=== PATIENT | female | born 2000 | race Two or more races ===

== ENCOUNTER 2025-05-27 18:54 | Emergency (ER) | payer OTHER, SELFPAY ==
--- NOTE | 2025-05-27 | ECG_ITS ---
Test Reason : SYNCOPE Blood Pressure : */* mmHG Vent. Rate : 63 BPM Atrial Rate : 63 BPM P-R Int : 162 ms QRS Dur : 90 ms QT Int : 426 ms P-R-T Axes : 31 49 22 degrees QTcB Int : 435 ms Normal sinus rhythm Normal ECG No previous ECGs available Referred By: Generic ED Physician Electronically Signed By: ANEL MUSE
[2025-05-27 19:02] VITALS: BP 90/60; PULSE 70; O2SAT 98
[2025-05-27 19:07] VITALS: BP 99/67; PULSE 64; RESP 20; TEMP 36.9; O2SAT 100; BMI 29.4
--- OUTSIDE RECORDS SUMMARY | 2025-05-27 19:35 | XMS_ITS ---
Author Name [facility] Organization Unknown Care Team Organization Name Specialty Phone Email Start Date End [facility] [place] 08/23/2022 05/19/2024 [facility] ERIK EDGAR DO Primary Care 08/15/2022 05/19/2024 [facility] 09/11/2020 09/11/2020
--- OUTSIDE RECORDS SUMMARY | 2025-05-27 19:35 | XMS_ITS | Clinical Summary ---
Author Organization [facility] Address [address] [place] [phone] Phone Care Team Providers Care Journeyman Wireman Name Role Phone Physician, No Pcp Primary Care Provider Unavaila ble Allergies No known active allergies Medications No known medications Active Problems No known active problems Social History Tobacco Use Types Packs/Day Years Used Date Smoking Tobacco: Never Smokeless Tobacco: Never Tobacco Cessation:Counseling Given: Not Answered Alcohol Use Standard Drinks/Week Comments Never 0 (1 standard drink = 0.6 oz pur e alcohol) Comments Unknown Sex and Gender Information Value Date Recorded Sex Assigned at Female 11/10/2024 5:47 PM EST Legal Sex Female 3:33 PM EST Gender Identity Female 11/10/2024 5:47 PM EST Sexual Orientation Straight 11/10/2024 5: 47 PM EST Obstetrics History Last Filed Vital Signs Vital Sign Reading Time Taken Comments Blood Pressure 115/53 11/10/2024 4:35 PM EST Pulse 90 11/10/2024 4:35 PM EST Temperature 36.9 C (98.4 F) 11/10/2024 4:35 PM EST Respiratory Rate 19 11/10/2024 4:35 PM EST Oxygen Saturation 97% 11/10/2024 4:35 PM EST Inhaled Oxygen Concentration - - Weight 66.7 kg (147 lb) 11/10/2024 4:35 PM EST Height 154.9 cm (5' 1 ) 11/10/2024 4:35 PM EST Body Mass Index 27.78 11/10/2024 4:35 PM EST Plan of Treatment Health Maintenance Due Date Last Done Comments Hepatitis B Vaccines (1 of 3 - 19+ 3-dose series) 2017 Cervical Cancer Screening: P ap Smear 2019 HIV Screening 08/30/2022 Hepatitis C Screening 08/30/2022 Social Influencers of Health Screening 08/30/2022 COVID-19 Vaccine (1 - 2023-2 5 season) 2024 Depression Screening 10/01/2024 Influenza Vaccine (#1) 2025 DTaP,Tdap,and Td Vaccines (2 - Td or Tdap) 06/12/2029 06/12/2019 HIB Vaccines Aged Out No longer eligi ble based on patient's age to complete this topic HPV Vaccines Aged Out No longer eligi ble based on patient's age to complete this topic Hepatitis A Vaccines Aged Out No long er eligible based on patient's age to complete this topic IPV Vaccines Aged Out No longer eligi ble based on patient's age to complete this topic MMR Vaccines Aged Out No longer eligi ble based on patient's age to complete this topic Meningococcal ACWY Vaccine Aged Out N o longer eligible based on patient's age to complete this topic Meningococcal B Vaccine Aged Out No l onger eligible based on patient's age to complete this topic Pneumococcal Vaccine: Pediat rics (0 to 5 Years) and At-Risk Patients (6 to 49 Years) Aged Out No longer eligi ble based on patient's age to complete this topic RSV Immunization Patients Un jesús 20 months Aged Out No longer eligible b ased on patient's age to complete this topic Varicella Vaccines Aged Out No longer eligible based on patient's age to complete [place] [address] MEDICA[place] Care Teams Journeyman Wireman Relationship Specialty Start Date End Date Physician, No Pcp PCP - General 11/10/24
--- NOTE | 2025-05-27 19:39 | ED_ITS ---
[facility] - General Adult General Chief complaint: Syncope Stated complaint: syncope Time Seen by Provider: 05/27/25 19:24 Source: patient Mode of arrival: EMS Limitations: no limitations History of Present Illness ED Provider: Dr. Mccarty [facility] narrative: 25-year-old female no medical history presented hospital today for a syncopal episode. Patient had a sudden symptoms of lightheadedness and dizziness. She let herself on the ground. Patient's mother found her passing out on the ground. Patient stated that for the past couple of weeks she has been having menstrual period. However this week she has been having increased amount of menstrual bleeding. Patient has been soaking through approximately 1 pad per hour. Denies any pain denies any headache denies any shortness of breath. Related Data Previous Rx's ?Medication ?Instructions ?Recorded tranexamic acid 650 mg tablet 650 mg PO Q8H 5 days #15 tabs 05/27/25 Allergies Allergy/AdvReac Type Severity Reaction Status Date / Time No Known Allergies Allergy Verified 05/27/25 19:10 Review of Systems 2 Review of Systems: Pertinent review of systems as mentioned in [facility]. All other system otherwise negative. [facility], [facility] Past Medical History [facility], [facility] Narrative: Medical history as mentioned in [facility] Social History Social History Advance Directives: No Advance Directives Information Provided: Yes Physical Exam ED Exam Exam: General: Pleasant, no distress, interacting appropriately Head: Normacephalic, atraumatic ENT: oral mucosa moist, neck supple, no tracheal deviation Cardiovascular: regular rate, regular rhythm, no murmurs, rubbing, gallops Respiratory: CTAB, no wheeze, rales, rhonchi Neurological: Awake and alert, no facial droop noted Skin: Warm and dry Psychiatric: Appropriate mood and thoughts Vital Signs: Vital Signs - 24 hr 05/27/25 19:07 05/27/25 21:08 Temperature 98.4 F 98.6 F Pulse Rate 64 62 Respiratory Rate 20 19 Blood Pressure 99/67 100/66 Pulse Oximetry 100 100 Oxygen Delivery Method Room Air Room Air BMI result Body Mass Index 29.4 Medications Administered Discontinued Medications Generic Name Dose Route Start Last Admin Trade Name Freq PRN Reason Stop Dose Admin Tranexamic Acid 1,000 mg/ 60 mls @ 360 mls/hr 05/27/25 19:38 05/27/25 20:42 Sodium Chloride IV 05/27/25 19:47 Infused ONCE ONE Infusion Sodium Chloride 1,000 mls @ 999 mls/hr 05/27/25 19:45 05/27/25 21:36 Ns IV 05/27/25 20:45 Infused .Q1H1M MARISOL Infusion Medical Decision Making Medical Decision Making [facility] Narrative: 25-year-old female presented hospital today for a syncopal episode. In the setting of heavy menstrual bleeding this past week. We will obtain a CBC to assess her hemoglobin level. Patient's vital signs stable at this time. No sign of hypotension or tachycardia. Patient is mentating fine now. A screening EKG will be obtained. We will obtain basic lab work with troponin as well. 1 g of IV TXA will be given the patient's for her heavy menstrual bleeding. We will plan to give patient a bolus IV fluid as well. Patient's troponin is is negative hemoglobin 11.8. EKG did not show any signs of cardiac arrhythmia. HCG is negative. Troponins negative Patient states she feels better. She was ambulated with nursing staff on issues. We will plan to discharge patient with some TXA and have her follow up with her OBGYN doctor. Instruction to return to the ER if she is soaking through 2 pads per hour of vaginal bleeding. Patient agrees and understands this plan. Differential Diagnosis Differential Diagnoses: The differential diagnosis associated with the presentation includes Dehydration, anemia, hemorrhagic shock, syncopal episode, cardiac arrhythmia Lab Data MDM Lab Attestation statement: I reviewed the patient's lab results. 05/27/25 19:41 05/27/25 19:42 Labs: Lab Results 05/27/25 05/27/25 05/27/25 Range/Units 19:41 19:42 21:26 WBC 5.9 (4.8-10.8) X10*3/uL RBC 3.85 L (4.20-5.50) X10*6/uL Hgb 11.8 L (12.0-16.0) g/dl Hct 34.5 L (37.0-47.0) % MCV 89.6 (80.0-98.0) fL MCH 30.6 (27.0-33.0) pg MCHC 34.2 (31.0-35.0) g/dl RDW 12.1 (11.0-16.0) % Plt Count 221 (160-400) X10*3/uL MPV 10.9 (9.4-12.3) fL Immature Gran % (Auto) 0.2 (0.0-0.4) % Neut % (Auto) 51.7 (45-73) % Lymph % (Auto) 40.1 H (20-40) % [place] % (Auto) 6.0 (2-11) % Eos % (Auto) 1.7 (0-4) % Baso % (Auto) 0.3 (0-2) % Lymph # (Auto) 2.4 (1.2-4.9) X10*3/uL [place] # (Auto) 0.4 (0.1-1.2) X10*3/uL Eos # (Auto) 0.1 (0.0-0.4) X10*3/uL Baso # (Auto) 0.0 (0.0-0.2) X10*3/uL Abs Immat Gran (auto) 0.01 (0.00-0.03) X10*3/uL Absolute Neuts (auto) 3.0 (2.0-8.3) x10*3/uL Absolute Nucleated RBC 0.000 (0.0-0.012) X10*3/uL Nucleated RBC % (auto) 0.0 (0.0-0.2) /100WBC PT 11.5 (10.9-12.4) SEC INR 1.0 (0.9-1.1) Sodium 141 (135-145) mmol/L Potassium 3.6 (3.3-5.1) mmol/L Chloride 109 H (96-108) mmol/L Carbon Dioxide 22 (22-29) mmol/L Anion Gap 14 (12-20) BUN 11 (9-16) mg/dL Creatinine 0.63 (0.5-1.4) mg/dL Estim Creat Clear Calc 120.5 Estimated GFR > 60 Random Glucose 141 H (60-115) mg/dL Calcium 8.7 (8.4-10.2) mg/dL Magnesium 1.8 (1.6-2.6) mg/dL Total Bilirubin 0.2 (0.0-1.0) mg/dL AST 15 (5-31) U/L ALT 16 (0-31) U/L Alkaline Phosphatase 62 (39-117) U/L Troponin I High Sens < 2.7 (<3.5-17.0) ng/L Total Protein 6.7 (6.5-8.0) g/dL Albumin 4.4 (3.5-5.0) g/dL Beta HCG, Quant < 2 mIU/mL Urine Color Yellow Urine Appearance Hazy Urine pH 6.5 (5.0-9.0) Ur Specific Bruce 1.010 (1.005-1.025) Urine Protein Trace (Neg-Trace) mg/dL Urine Glucose (UA) Negative (Negative) mg/dL Urine Ketones Negative (Negative) mg/dL Urine Blood Large (3+) H (Negative) Urine Nitrite Negative (Negative) Ur Leukocyte Esterase Trace H (Negative) Urine RBC 11-20 H (0-2) /HPF Urine WBC 0-5 (0-5) /HPF Ur Squamous Epith Cells 3-5 (0-2) /HPF Urine Bacteria None Seen (None Seen) Hyaline Casts 0-2 (0-2) /LPF Independent Interpretation I performed an independent interpretation of an: EKG Discharge Plan Discharge Clinical Impression: Vasovagal syncope Patient Disposition: Home, Self-Care Instructions: Syncope (ED) Additional Instructions: Please follow up with your WEATHERIZATION COORDINATOR doctor on your heavy vaginal bleeding. IF you have soaked through 2 pads per hour, shortness of breath, lightheadedness or chest pain return to the ED. Prescriptions: New tranexamic acid 650 mg tablet 650 mg PO Q8H 5 Days Qty: 15 0RF Print Language: Turkish
[2025-05-27 19:46] LABS: MANUAL DIFF FLAG NO
[2025-05-27 19:47] LABS: Hematocrit 34.5 % (37.0-47.0); Hemoglobin 11.8 g/dl (12.0-16.0); Imm Gran Abs Auto 0.01 X10*3/uL (0.00-0.03); Imm Gran Pct Auto 0.2 % (0.0-0.4); Lymphocytes Absolute Auto 2.4 X10*3/uL (1.2-4.9); Mean Corpuscular HGB Conc 34.2 g/dl (31.0-35.0); Mean Corpuscular Hemoglobin 30.6 pg (27.0-33.0); Mean Corpuscular Volume 89.6 fL (80.0-98.0); NRBC Abs Auto 0.000 X10*3/uL (0.0-0.012); NRBC Pct Auto 0.0 /100WBC (0.0-0.2); Platelet Count 221 X10*3/uL (160-400); Red Blood Count 3.85 X10*6/uL (4.20-5.50); White Blood Count 5.9 X10*3/uL (4.8-10.8)
[2025-05-27 19:56] LABS: INTERNATIONAL NORM RATIO 1.0 (0.9-1.1); Prothrombin Time 11.5 SEC (10.9-12.4)
[2025-05-27 20:12] LABS: Alanine Aminotransferase 16 U/L (0-31); Albumin Level 4.4 g/dL (3.5-5.0); Alkaline Phosphatase 62 U/L (39-117); Anion Gap 14 (12-20); Aspartate Amino Transferase 15 U/L (5-31); Blood Urea Nitrogen 11 mg/dL (9-16); Calcium 8.7 mg/dL (8.4-10.2); Carbon Dioxide 22 mmol/L (22-29); Chloride 109 mmol/L (96-108); Creatinine Clr Calc Pharmacy 120.5; Estimated Glomerular Filt Rate > 60; Magnesium 1.8 mg/dL (1.6-2.6); Potassium 3.6 mmol/L (3.3-5.1); Sodium 141 mmol/L (135-145); Total Protein 6.7 g/dL (6.5-8.0); Troponin-I High Sensitivity < 2.7 ng/L (<3.5-17.0)
[2025-05-27] MEDS: Tranexamic Acid 1,000 MG in 0.9 % Sodium Chloride 50 ML 360 MG IV (20:31)
[2025-05-27 21:08] VITALS: BP 100/66; PULSE 62; RESP 19; TEMP 37; O2SAT 100
[2025-05-27 21:34] LABS: Appearance Urine Hazy; Glucose Urine UA Negative (Negative); PH 6.5 (5.0-9.0); Specific Gravity - Urine 1.010 (1.005-1.025); UMIC TRIGGER UACC YES
[2025-05-27 23:05] VITALS: BP 100/66; PULSE 62; RESP 19; TEMP 37; O2SAT 100
== END 2025-05-27 23:05 | disposition home or self-care (01) ==
PROVIDERS: Emergency Provider Student in an Organized Health Care Education/Training Program
DX: R55 Syncope and collapse (principal); N92.0 Excessive and frequent menstruation with regular cycle
CPT/HCPCS: 36415; 80053; 81001; 83735; 84484; 84702; 85025; 85610; 93005; 96361; 96374; 99284

== ENCOUNTER → 2025-05-27 19:23 | Outpatient (BNV) | payer OTHER, SELFPAY | PROVIDERS: Emergency Provider Student in an Organized Health Care Education/Training Program; Visit Provider Internal Medicine | DX: R55 Syncope and collapse (principal) | CPT/HCPCS: 93010 ==